=== PATIENT | male | born 1995 | race Caucasian/White ===

== ENCOUNTER 2024-09-01 01:44 | Emergency (ER) | payer SELFPAY ==
[~2024-09-01] VITALS: Ht 157.5 cm; Wt 65.0 kg
[2024-09-01 01:47] VITALS: BP 126/82; PULSE 80; RESP 16; TEMP 98.8; O2SAT 100
[2024-09-01] MEDS ORDERED: KETOROLAC 15MG/ML VIAL IM ONE (02:30)
== END 2024-09-01 02:41 | disposition left against medical advice (07) ==
LOC: ER 01:44
DX: K04.7 Periapical abscess without sinus (principal)
CPT/HCPCS: 99283